=== PATIENT | female | born 1935 | race Caucasian/White ===

== ENCOUNTER → 2016-07-25 | Outpatient (CLI) | payer OTHER, MEDICARE ==
[~2016-07-25] MED LIST: ALBUTEROL17 GM INH; CLINDAMYCIN HC300 MG PO; COUMADIN PO; COUMADIN2.5 MG PO; COUMADIN5 MG PO; CRESTOR PO; DIFLUCAN100 MG PO; FEMARA2.5 MG PO; GLUCOPHAGE XR500 MG PO; GLUCOPHAGE500 MG PO; KEFLEX500 M1 PO; LASIX20 MG PO; LORTAB 7.51 TAB 7.5/ PO; METFORMIN HCL500 M1 PO; METFORMIN PO; MILLIPRED5 MG PO; MUCUS RELIEF; PHENERGAN25 MG PO; TYLENOL #3 PO; VITAMIN B 12 PO; VITAMIN D31000 UNI1 PO
--- NOTE | ~2016-07-25 | CR63 ---
[facility] A Service of [facility] / [facility] RADIOLOGY TEXT RESULTS PATIENT: JOANN ACOSTA LOCATION: [facility] : 31 UNIT #: [id number] AGE: [address]: Misty Bledsoe MD SEX: F ORDER DR: [id number] [facility] [address] [place], [place] [address] [id number] O MR#: [id number] Acc #: [id number] NAME: JOANN ACOSTA : 1935 SEX: F STUDY DATE/TIME: 07/25/2016 17:48 UNIT: [facility] ROOM: STUDY DESCRIPTION: CR Chest 2 View Attending Physician: Misty Bledsoe M.D. Referring Physician: Misty Bledsoe M.D. Ordering Physician: Misty Bledsoe M.D. Primary Care Physician: Misty Bledsoe M.D. MEDICAL IMAGING REPORT This report is preliminary unless electronic signature is present EXAM Chest x-ray. HISTORY Cough and wheezing with congestion and chest pressure over the past week. COMPARISON 01/25/2014 TECHNIQUE 2 views of the chest were obtained. FINDINGS 2 views of the chest show emphysematous changes in the lungs. Heart size is normal. The aorta is tortuous. Vascular markings are normal. No changes noted since the previous exam. IMPRESSION Emphysema. No active disease. Dictated by... Kervin Tobar M.D. THIS IS AN ELECTRONICALLY VERIFIED REPORT Kervin Tobar M.D. at 07/25/2016 10:22 PM BEL/mandeep TD: 07/25/2016 18:54 JOB #: [id number] MEDICAL IMAGING REPORT Page 1 of 1 COPY
== END | disposition home or self-care (01) ==
LOC: CRAD 17:12
DX: R06.2 Wheezing (principal); R05 Cough; J43.9 Emphysema, unspecified
CPT/HCPCS: 71020